=== PATIENT | male | born 1965 ===

== ENCOUNTER 2023-12-24 10:30 | Emergency (ER) | payer OTHER, SELFPAY ==
--- NOTE | ~2023-12-24 | US_ITS ---
EXAMINATION: US ABDOMEN LIMITED CLINICAL INFORMATION: Upper abdominal pain. COMPARISON: Abdominal ultrasound 04/14/2019 and 09/02/2018 TECHNIQUE: Real-time imaging of the right upper quadrant abdominal viscera. FINDINGS: PANCREAS: The visualized portions of the pancreas are unremarkable but a large portion of the gland is obscured by bowel gas. LIVER: The liver is normal in size measuring 16.3 cm in greatest length. The liver contour is normal. Parenchymal echogenicity is normal. Previously seen increased echogenicity is not appreciated on the current study. No focal hepatic lesion. There is no intrahepatic biliary duct dilatation seen. GALLBLADDER: Normal. The gallbladder is physiologically distended without evidence of stones, sludge, polyps, wall thickening or pericholecystic fluid. COMMON BILE DUCT: Normal in caliber measuring 0.3 cm in diameter. RIGHT KIDNEY: Normal. No hydronephrosis. No renal calculi or focal parenchymal lesions. The kidney measures 10.0 cm in maximum dimension. FREE FLUID: None. US/US abdomen limited IMPRESSION: Negative exam. A cause for the patient's upper abdominal pain has not been found. Electronically signed by: Luis Wadsworth MD 12/24/2023 01:58 PM EDT
--- NOTE | 2023-12-24 10:38 | ECG_ITS ---
Test Reason : chestpain Blood Pressure : / mmHG Vent. Rate : 087 BPM Atrial Rate : 087 BPM P-R Int : 154 ms QRS Dur : 082 ms QT Int : 372 ms P-R-T Axes : 023 -03 021 degrees QTc Int : 447 ms Normal sinus rhythm Normal ECG When compared with ECG of 22-JUN-2016 13:37, Vent. rate has increased BY 38 BPM QT has shortened Nonspecific T wave abnormality is no longer Present Referred By: Generic ED Physician Electronically Signed By:OLGA CHURCHILL
[2023-12-24 11:57] VITALS: BP 156/107; PULSE 94; RESP 18; TEMP 37; O2SAT 97; BMI 24.7
--- NOTE | 2023-12-24 12:11 | ED_ITS ---
HPI - Chest Pain General Chief Complaint: Chest Pain Stated Complaint: Chest pain, high BP Time Seen by Provider: 12/24/23 20:19 Source: patient and other (Girlfriend) Mode of arrival: ambulatory Limitations: no limitations History of Present Illness ED Provider: Dr. Layotn Gaxiola HPI narrative: 58-year-old male with a history of hypertension came alcohol use disorder who presents emergency department for evaluation of chest pain, abdominal pain, nausea, vomiting and diarrhea. The patient states his symptoms started yesterday. He states he has been having diffuse abdominal pain worse in the lower abdomen and right upper quadrant. He describes it as a cramping sensation which is 8/10 at its worst. These symptoms started yesterday. He states he has had multiple episodes of vomiting and has not been able to eat or drink for the last 2 days. He also is complaining of chest pain. He points to his anterior chest. He states this pain is worse with vomiting. The pain lasts approximately 30 minutes and had a proximally 10 episodes since onset. Patient states that he also had loose diarrheal stools. He denied dark black stools or bloody stools. He also states he has had no appetite. He is complaining of cramping and numbness in his hands and feet. The patient states that he does drink 4-6 rachel drinks per day. He states he did have a 30 day period of sobriety several months ago after he went to a 10 day treatment program but otherwise has been drinking heavily for a long time. Related Data Previous Rx's ?Medication ?Instructions ?Recorded diphenhydramine HCl 25 mg capsule 50 mg (2 x 25 mg) PO Q6H PRN 12/25/23 headache, nausea, vomiting #20 caps folic acid 20 mg capsule 20 mg PO DAILY 90 days #90 caps 12/25/23 metoclopramide HCl 10 mg tablet 10 mg PO Q6H PRN nausea and 12/25/23 (Reglan) vomiting #14 tabs multivitamin 1 tab PO DAILY 90 days #90 tabs 12/25/23 omeprazole 20 mg capsule,delayed 20 mg PO DAILY 30 days #30 caps 12/25/23 release thiamine HCl (vitamin B1) 100 mg 100 mg PO DAILY 90 days #90 tabs 12/25/23 tablet Allergies Allergy/AdvReac Type Severity Reaction Status Date / Time ondansetron Allergy Severe Angioedema Verified 12/24/23 12:08 Review of Systems 2 Review of Systems: Yes all other systems are reviewed and are negative [facility] Social History Social History (Updated 04/21/21 @ 10:10 by Rosemary Torres) Alcohol intake: current Alcohol intake frequency: 3 or more drinks per day Alcohol type: hard liquor Patient Tobacco Use Status: Former Tobacco user Smoked in Last 30 Days: No Use of substances other than those prescribed or required for medical reasons: No Advance Directives: No Advance Directives Information Provided: No Physical Exam 2 Vital Signs: Vital Signs: Last Vital Signs Temp 98.3 F 12/25/23 00:31 Pulse 81 12/25/23 00:31 Resp 16 12/25/23 00:31 BP 137/80 12/25/23 00:31 Pulse Ox 97 12/25/23 00:31 O2 Del Method Room Air 12/25/23 00:31 BMI result Body Mass Index 24.7 Vital signs revealed an elevated blood pressure of 149/104 otherwise Exam: General: Awake, alert in no distress Head: Normocephalic, atraumatic EENT: PERRL, Lids normal, sclera normal, conjunctiva normal, nose normal , ears normal, throat without erythema or exudates Neck: Supple, no adenopathy Lung: breath sounds symmetric, no wheezing, rales or rhonchi Chest: symmetric movement, nontender Heart: regular rate and rhythm, normal S1, S2 no murmurs or rubs Abdomen: Diffuse mild to moderate abdominal tenderness with increased tenderness in the right upper quadrant and epigastric area, no rebound, no voluntary or involuntary guarding Back: no vertebral tenderness, no CVAT Extremities: no deformities, moves all extremities symmetrically Neuro: Awake, alert, oriented, normal speech, cranial nerves intact, moves all extremities symmetrically Psych: Pleasant, cooperative Course Course Course Narrative: Rapid medical exam performed by Rosa M Mercado PA-C. The patient is a 58-year-old male presenting with upper abdominal pain x1 day. Associated nausea vomiting. He admits to daily alcohol use. On exam his abdomen is soft, without peritoneal signs, mild to moderate tenderness across the entire upper abdomen with moderate voluntary guarding. An ultrasound of the upper abdomen and labs obtained, he will return to the weight room pending full assessment Medications Administered Discontinued Medications Generic Name Dose Route Start Last Admin Trade Name Freq PRN Reason Stop Dose Admin Diphenhydramine HCl 50 mg 12/24/23 21:34 12/24/23 21:42 Diphenhydramine Hcl 50 Mg/Ml Vial IVPUSH 12/24/23 21:35 50 mg ONCE STA Administration Sodium Chloride 1,000 mls @ 999 mls/hr 12/24/23 21:32 12/24/23 22:39 Ns IV 12/24/23 22:32 Infused .Q1H1M STA Infusion Thiamine HCl 500 mg/ Sodium 105 mls @ 210 mls/hr 12/24/23 21:32 12/24/23 22:17 Chloride IV 12/24/23 22:01 Infused ONCE ONE Infusion Sodium Chloride 1,000 mls @ 999 mls/hr 12/24/23 21:36 12/24/23 23:33 Ns IV 12/24/23 22:36 Infused .Q1H1M STA Infusion Ketorolac Tromethamine 15 mg 12/24/23 21:32 12/24/23 21:42 Ketorolac Tromethamine 15 Mg/Ml Vial IVPUSH 12/24/23 21:33 15 mg ONCE STA Administration Metoclopramide HCl 10 mg 12/24/23 21:34 12/24/23 21:42 Metoclopramide Hcl 10 Mg/2 Ml Vial IVPUSH 12/24/23 21:35 10 mg ONCE STA Administration Sucralfate 1 gm 12/24/23 18:00 12/24/23 18:12 Sucralfate Oral Suspension 1 Gm/10 Ml Oral.Susp PO 12/24/23 18:01 1 gm ONCE ONE Administration Medical Decision Making Medical Decision Making [facility] Narrative: 58-year-old male with a history of hypertension came alcohol use disorder who presents emergency department for evaluation of chest pain, abdominal pain, nausea, vomiting and diarrhea x2 days with inability to eat or drink. He was also complaining of cramping and numbness in his hands and feet times months. Patient states he has had a poor appetite and has had weight loss. The patient drinks at least 4-6 large rachel drinks per day. He states he did have a period of sobriety for 30 days after attending a treatment program for 10 days. Differential diagnosis: ?Includes but is not limited to pancreatitis, cholecystitis, alcoholic gastritis, cirrhosis, electrolyte abnormalities, anemia Course: 21:48 My interpretation patient's laboratory evaluation is as follows: CBC was normal. Sodium elevated 146, chloride low 109. BUN and creatinine were normal. Glucose elevated 116. LFTs were normal. Troponin was detectable but not elevated at 2.9. Lipase was normal at 35. Ethanol level was elevated 291. Patient had a right upper quadrant ultrasound which revealed no acute findings to explain the patient's pain Patient's presentation is consistent with acute alcoholic gastritis. The patient's paresthesias most likely secondary to thiamine/folate deficiency and malnutrition. Patient was ordered to get normal saline IV x2 L, Toradol 15 mg IV, Reglan 10 mg IV, Benadryl 50 mg IV and thiamine 500 mg IV. 00:13 Patient is feeling significantly better after the above treatment. The patient will be discharged home with a prescription for Reglan Benadryl for nausea and vomiting, omeprazole for gastritis, thiamine folate and multivitamins for his alcohol use disorder. Patient was advised to get help with his alcohol use disorder and to attend AA meetings he was given printed and verbal instructions discharged home. He was also given a work note. Admission/Observation Consideration of admission/observation: Escalation of care including admission/observation considered (Yes) Lab Data [facility] Lab Attestation statement: I reviewed the patient's lab results. 12/24/23 12:56 12/24/23 12:56 Labs: Lab Results 12/24/23 12/24/23 Range/Units 12:56 17:15 WBC 5.1 (4.8-10.8) X10*3/uL RBC 4.57 L (4.60-5.80) X10*6/uL Hgb 14.7 (14.0-18.0) g/dl Hct 43.1 (42.0-52.0) % MCV 94.3 (80.0-98.0) fL MCH 32.2 (27.0-33.0) pg MCHC 34.1 (31.0-36.0) g/dl RDW 14.1 (11.0-16.0) % Plt Count 361 (160-400) X10*3/uL MPV 9.6 (9.4-12.4) fL Immature Gran % (Auto) 0.2 (0.0-0.4) % Neut % (Auto) 48.1 (45-73) % Lymph % (Auto) 45.6 H (20-40) % [place] % (Auto) 4.7 (2-11) % Eos % (Auto) 0.6 (0-4) % Baso % (Auto) 0.8 (0-2) % Lymph # (Auto) 2.3 (1.2-4.9) X10*3/uL [place] # (Auto) 0.2 (0.1-1.2) X10*3/uL Eos # (Auto) 0.0 (0.0-0.4) X10*3/uL Baso # (Auto) 0.0 (0.0-0.2) X10*3/uL Abs Immat Gran (auto) 0.01 (0.00-0.03) X10*3/uL Absolute Neuts (auto) 2.5 (2.0-8.3) x10*3/uL Absolute Nucleated RBC 0.000 (0.0-0.012) X10*3/uL Nucleated RBC % (auto) 0.0 (0.0-0.2) /100WBC Sodium 146 H (135-145) mmol/L Potassium 3.8 (3.3-5.1) mmol/L Chloride 109 H (96-108) mmol/L Carbon Dioxide 27 (22-29) mmol/L Anion Gap 14 (12-20) BUN 14 (9-16) mg/dL Creatinine 0.82 (0.5-1.4) mg/dL Estim Creat Clear Calc 110.4 Estimated GFR > 60 Random Glucose 116 H (60-115) mg/dL Calcium 8.5 (8.4-10.2) mg/dL Magnesium 2.2 (1.6-2.6) mg/dL Total Bilirubin 0.2 (0.0-1.0) mg/dL AST 24 (5-37) U/L ALT 21 (0-40) U/L Alkaline Phosphatase 90 (39-117) U/L Troponin I High Sens 3.3 2.9 (<3.5-35.0) ng/L Total Protein 7.7 (6.5-8.0) g/dL Albumin 4.0 (3.5-5.0) g/dL Lipase 35 (8-78) U/L Ethyl Alcohol 291 mg/dL Independent Interpretation I performed an independent interpretation of an: EKG Interpretation: My independent interpretation patient's 12 EKG done at 10:33 hours is as follows: Normal sinus rhythm rate of 87, normal ME interval, QRS duration QTC interval, no ST segment elevation, no ST segment depression, no significant T- wave abnormalities Radiology Impression Discussion of test interpretation with radiology: I have reviewed the radiologist's reading. Radiologist Impression: US abdomen limited IMPRESSION: Negative exam. A cause for the patient's upper abdominal pain has not been found. Dictated By: Luis Wadsworth MD Independent Historian Clinical information obtained from an independent historian. History obtained from or confirmed by: Other (Girlfriend) Prescription Management I considered prescription management with: Other (Antiemetics-Reglan and Benadryl, proton pump inhibitor-Prilosec) Chronic Conditions Patient?s care impacted by: Hypertension and Other (Alcohol use disorder) Discharge Plan Discharge Clinical Impression: Acute alcoholic gastritis, Nausea & vomiting, Alcohol use disorder Patient Disposition: Home, Self-Care Instructions: Gastritis (ED) Additional Instructions: Your laboratory evaluation was unremarkable. Your your nausea, vomiting abdominal pain is caused by alcoholic gastritis (inflammation of your stomach). Your numbness and weakness in your extremities is most likely caused by your alcohol use causing malnutrition and vitamin deficiencies (thiamine and folate). Take Prilosec (omeprazole) 20 mg pills, 1 pill once a day for 1 month. ?This medication shuts off your acid production and lets the inflammation in your stomach and esophagus heal. Take Reglan (metoclopramide) in 10 mg, 1 pill every 6 hours as needed for nausea and vomiting. When you take Reglan I also want you to take Benadry (diphenhydramine) l 25 mg, 2 pills. After you take these medications, lie down in a dark quiet room and try to fall asleep. ?These medications will make you sleepy, do not drive or work after taking these medications. Take thiamine, folate and multivitamins. Follow-up with your doctor in 2 days. Please return to the emergency department if your symptoms get worse or if you develop any symptoms that are concerning to you. Please see the work note You should consider getting into a detox program to help with your alcohol use disorder and consider attending AA meetings. Prescriptions: New diphenhydramine HCl 25 mg capsule 50 mg PO Q6H PRN (Reason: headache, nausea, vomiting) Qty: 20 0RF omeprazole 20 mg capsule,delayed release(DR/EC) 20 mg PO DAILY 30 Days Qty: 30 0RF metoclopramide HCl [Reglan] 10 mg tablet 10 mg PO Q6H PRN (Reason: nausea and vomiting) Qty: 14 0RF thiamine HCl (vitamin B1) 100 mg tablet 100 mg PO DAILY 90 Days Qty: 90 0RF folic acid 20 mg capsule 20 mg PO DAILY 90 Days Qty: 90 0RF multivitamin Tablet 1 tab PO DAILY 90 Days Qty: 90 0RF Stand Alone Forms: Work/School Release Interventions: ED Discharge Assessment Last Done: 12/25/23 00:31 Discharge Date/Time: 12/25/23 00:32 Print Language: Indonesian
[2023-12-24 13:05] LABS: MANUAL DIFF FLAG NO
[2023-12-24 13:07] LABS: Basophils Percent Auto 0.8 % (0-2); Eosinophils Percent Auto 0.6 % (0-4); Hematocrit 43.1 % (42.0-52.0); Hemoglobin 14.7 g/dl (14.0-18.0); Imm Gran Abs Auto 0.01 X10*3/uL (0.00-0.03); Imm Gran Pct Auto 0.2 % (0.0-0.4); Lymphocytes Absolute Auto 2.3 X10*3/uL (1.2-4.9); Lymphocytes Percent Auto 45.6 % (20-40); Mean Corpuscular HGB Conc 34.1 g/dl (31.0-36.0); Mean Corpuscular Hemoglobin 32.2 pg (27.0-33.0); Mean Corpuscular Volume 94.3 fL (80.0-98.0); Mean Platelet Volume 9.6 fL (9.4-12.4); Monocytes Absolute Auto 0.2 X10*3/uL (0.1-1.2); Monocytes Percent Auto 4.7 % (2-11); Neutrophils Absolute Auto 2.5 x10*3/uL (2.0-8.3); Neutrophils Percent Auto 48.1 % (45-73); Platelet Count 361 X10*3/uL (160-400); Red Blood Count 4.57 X10*6/uL (4.60-5.80); Red Cell Distribution Width 14.1 % (11.0-16.0); White Blood Count 5.1 X10*3/uL (4.8-10.8)
[2023-12-24 13:26] LABS: Alanine Aminotransferase 21 U/L (0-40); Alkaline Phosphatase 90 U/L (39-117); Anion Gap 14 (12-20); Aspartate Amino Transferase 24 U/L (5-37); Bilirubin Total 0.2 mg/dL (0.0-1.0); Blood Urea Nitrogen 14 mg/dL (9-16); Calcium 8.5 mg/dL (8.4-10.2); Carbon Dioxide 27 mmol/L (22-29); Chloride 109 mmol/L (96-108); Creatinine Clr Calc Pharmacy 110.4; Estimated Glomerular Filt Rate > 60; Ethanol 291 mg/dL; Glucose Random 116 mg/dL (60-115); Lipase 35 U/L (8-78); Magnesium 2.2 mg/dL (1.6-2.6); Potassium 3.8 mmol/L (3.3-5.1); Sodium 146 mmol/L (135-145); Total Protein 7.7 g/dL (6.5-8.0)
[2023-12-24 13:36] LABS: Troponin-I High Sensitivity 3.3 ng/L (<3.5-35.0)
[2023-12-24 17:43] LABS: Troponin-I High Sensitivity 2.9 ng/L (<3.5-35.0)
[2023-12-24] MEDS: Sucralfate Oral Suspension 1 GM/10 ML ORAL.SUSP PO (18:12)
[2023-12-24 19:28] VITALS: BP 174/118; PULSE 100; RESP 16; TEMP 36.6; O2SAT 96
[2023-12-24 20:00] VITALS: BP 149/104; PULSE 95; RESP 12; TEMP 36.9; O2SAT 98
[2023-12-24] MEDS: Metoclopramide HCl 10 MG/2 ML VIAL IVPUSH (21:42)
[2023-12-24] MEDS: Ketorolac Tromethamine 15 MG/ML VIAL IVPUSH (21:42)
[2023-12-24] MEDS: diphenhydrAMINE HCL 50 MG/ML VIAL IVPUSH (21:42)
[2023-12-24] MEDS: 0.9 % Sodium Chloride 1,000 ML 999 ML IV ×2 (21:42→22:38)
[2023-12-24] MEDS: Thiamine HCL 500 MG in 0.9 % Sodium Chloride 100 ML 210 MG IV (21:42)
[2023-12-24 22:12] VITALS: BP 150/103; PULSE 83; RESP 16; O2SAT 97
--- NOTE | 2023-12-24 22:39 | PC.NURSE ---
pt reports relief of symptoms and pain s/p medication administration. iv fluids running, pt resting comfortably. call frye within reach
[2023-12-25 00:31] VITALS: BP 137/80; PULSE 81; RESP 16; TEMP 36.8; O2SAT 97
== END 2023-12-25 00:32 | disposition home or self-care (01) ==
PROVIDERS: Physician Assistant Medical; Emergency Provider Emergency Medicine Emergency Medical Services
DX: K29.20 Alcoholic gastritis without bleeding (principal); R07.89 Other chest pain; F10.10 Alcohol abuse, uncomplicated; Y90.8 Blood alcohol level of 240 mg/100 ml or more; R11.2 Nausea with vomiting, unspecified; Z79.899 Other long term (current) drug therapy; Z51.81 Encounter for therapeutic drug level monitoring
CPT/HCPCS: 36415; 76705; 80053; 80307; 83690; 83735; 84484; 85025; 93005; 96361; 96374; 96375; 99285; J1200; J1885; J2765; J3411

== ENCOUNTER 2024-02-12 08:06 | Outpatient (REF) | payer MEDICAID, SELFPAY ==
[2024-02-12 10:56] LABS: MANUAL DIFF FLAG NO
[2024-02-12 11:04] LABS: Basophils Percent Auto 0.6 % (0-2); Eosinophils Absolute Auto 0.2 X10*3/uL (0.0-0.4); Hematocrit 39.5 % (42.0-52.0); Hemoglobin 12.8 g/dl (14.0-18.0); Imm Gran Abs Auto 0.02 X10*3/uL (0.00-0.03); Imm Gran Pct Auto 0.3 % (0.0-0.4); Lymphocytes Absolute Auto 2.4 X10*3/uL (1.2-4.9); Lymphocytes Percent Auto 35.6 % (20-40); Mean Corpuscular HGB Conc 32.4 g/dl (31.0-36.0); Mean Corpuscular Volume 95.6 fL (80.0-98.0); Monocytes Absolute Auto 0.7 X10*3/uL (0.1-1.2); Neutrophils Absolute Auto 3.4 x10*3/uL (2.0-8.3); Neutrophils Percent Auto 50.5 % (45-73); Platelet Count 222 X10*3/uL (160-400); Red Blood Count 4.13 X10*6/uL (4.60-5.80); Red Cell Distribution Width 14.2 % (11.0-16.0); White Blood Count 6.7 X10*3/uL (4.8-10.8)
[2024-02-12 11:06] LABS: INTERNATIONAL NORM RATIO 0.9 (0.9-1.1); Prothrombin Time 10.6 SEC (10.9-12.4)
[2024-02-12 11:14] LABS: Estimated Average Glucose 114 mg/dL; Hemoglobin A1C 129.2986 umol/L; Hemoglobin A1c % 5.6 % (<6.0); Total Hemoglobin (HGBA1C) 3436.6377 umol/L
[2024-02-12 11:38] LABS: HBS Num1 0.43 mIU/mL (0-7.99); HBc Num1 0.14 S/CO (0.00-0.79); HBsAGNum1 0.27 S/CO (0.00-0.99); HIV AB/AG Nonreactive (Nonreactive); HIV Num 1 0.06 S/CO (0.00-0.99); Hepatitis B Core Antibody Nonreactive (Nonreactive); Hepatitis B Surface Antigen Negative (Negative); ~HepC Num1 12.15 S/CO (0.00-0.79); ~Hepatitis B Surface Antibody NONREACTIVE (Nonreactive); ~Hepatitis C Antibody Reactive (Nonreactive)
[2024-02-12 11:49] LABS: Vitamin B12 160 pg/mL (200-900)
[2024-02-12 11:50] LABS: Alanine Aminotransferase 29 U/L (0-40); Anion Gap 12 (12-20); Aspartate Amino Transferase 23 U/L (5-37); Bilirubin Total 0.4 mg/dL (0.0-1.0); Blood Urea Nitrogen 10 mg/dL (9-16); Calcium 9.7 mg/dL (8.4-10.2); Carbon Dioxide 28 mmol/L (22-29); Chloride 104 mmol/L (96-108); Estimated Glomerular Filt Rate > 60; Glucose Random 98 mg/dL (60-115); Magnesium 1.5 mg/dL (1.6-2.6); Potassium 3.9 mmol/L (3.3-5.1); Sodium 140 mmol/L (135-145); TSH reflex Free T4 1.88 uIU/mL (0.32-4.0); Total Protein 7.3 g/dL (6.5-8.0)
[2024-02-12 12:06] LABS: Alkaline Phosphatase 71 U/L (39-117)
[2024-02-13 14:43] LABS: HCV Log PCR <1.18 NOT DETECTED Log IU/mL (NOT DETECTED); HepC Viral Load <15 NOT DETECTED IU/mL (NOT DETECTED)
[2024-02-14 07:28] LABS: RPR Rapid Plasma Reagin NON-REACTIVE (NON-REACTIVE)
== END 2024-02-12 08:07 | disposition home or self-care (01) ==
LOC: HO.HHCL 08:06
PROVIDERS: Visit Provider Emergency Medicine
DX: Z11.4 Encounter for screening for human immunodeficiency virus [HIV] (principal); Z13.1 Encounter for screening for diabetes mellitus; F10.90 Alcohol use, unspecified, uncomplicated; K21.9 Gastro-esophageal reflux disease without esophagitis; I10 Essential (primary) hypertension
CPT/HCPCS: 36415; 80053; 82607; 83036; 83735; 84443; 85025; 85610; 86592; 86704; 86706; 86803; 87338; 87340; 87389; 87522

== ENCOUNTER 2024-02-17 17:28 | Emergency (ER) | payer MEDICAID, SELFPAY ==
[2024-02-17 17:49] VITALS: BP 136/95; PULSE 93; RESP 16; TEMP 37.6; O2SAT 97; BMI 25.8
== END 2024-02-18 00:22 | disposition left against medical advice (07) ==
PROVIDERS: Emergency Provider Emergency Medicine Emergency Medical Services
DX: R51.9 Headache, unspecified (principal); Z53.21 Procedure and treatment not carried out due to patient leaving prior to being seen by health care provider
CPT/HCPCS: 99281

== ENCOUNTER 2024-10-07 17:54 | Emergency (ER) | payer MEDICAID, SELFPAY ==
--- NOTE | ~2024-10-07 | CT_ITS ---
CLINICAL HISTORY: left flank pain CT of the abdomen and pelvis without intravenous contrast. No comparison. Findings: The liver and gallbladder are unremarkable. No renal stones are seen. There is a 6 mm distal left ureteral stone with mild hydronephrosis. The spleen and pancreas are unremarkable. No abdominal aortic aneurysm. Small hiatal hernia. No diverticulitis is identified. Normal appendix. No bowel obstruction. There is a small umbilical hernia. The bladder is decompressed. There are multilevel degenerative changes in the spine. Sclerotic density right femoral neck is likely a bone island. Impression: 6 mm distal left ureteral stone. Other findings as above. This document has been electronically signed by: Vinny Armenta MD on 10/07/2024 21:06:23
[2024-10-07 18:03] VITALS: BP 131/99; PULSE 115; RESP 18; TEMP 36.5; O2SAT 97; BMI 27.4
--- NOTE | 2024-10-07 18:06 | ED.ABDPAIN ---
HPI - Abdominal Pain General Chief Complaint: Abdominal Pain Stated Complaint: Abd pain, low back pain Time Seen by Provider: 10/07/24 18:41 Related Data Previous Rx's ?Medication ?Instructions ?Recorded diphenhydramine HCl 25 mg capsule 50 mg (2 x 25 mg) PO Q6H PRN 12/25/23 headache, nausea, vomiting #20 caps folic acid 20 mg capsule 20 mg PO DAILY 90 days #90 caps 12/25/23 metoclopramide HCl 10 mg tablet 10 mg PO Q6H PRN nausea and 12/25/23 (Reglan) vomiting #14 tabs multivitamin 1 tab PO DAILY 90 days #90 tabs 12/25/23 omeprazole 20 mg capsule,delayed 20 mg PO DAILY 30 days #30 caps 12/25/23 release thiamine HCl (vitamin B1) 100 mg 100 mg PO DAILY 90 days #90 tabs 12/25/23 tablet ibuprofen 400 mg tablet 400 mg PO Q6H PRN pain #20 tabs 10/07/24 oxycodone 5 mg tablet 5 mg PO Q8H PRN pain #7 tabs 10/07/24 tamsulosin 0.4 mg capsule (Flomax) 0.4 mg PO DAILY #7 caps 10/07/24 Allergies Allergy/AdvReac Type Severity Reaction Status Date / Time ondansetron Allergy Severe Angioedema Verified 10/07/24 18:07 [facility] Social History Social History Alcohol intake: current Alcohol intake frequency: holidays/special occasions only Alcohol type: hard liquor Patient Tobacco Use Status: Former Tobacco user Physical Exam ED Vital Signs: Vital Signs - 24 hr 10/07/24 18:03 Temperature 97.7 F Pulse Rate 115 H Respiratory Rate 18 Blood Pressure 131/99 H Pulse Oximetry 97 BMI result Body Mass Index 27.4 Course Course Course Narrative: This is an RME: Additional HPI, ROS, PE not included below will be deferred to primary provider. RME assessment and note performed by: Chrystal Lerma PA-C This is a [id number]-male, with a hx of HTN, who presents to the ER with complaints of LLQ pain x 2 hours. Had diarrhea several days ago. Pt diaphoretic HR 115bpm, no CP/SOB. Pain radiates into left flank. No urinary symptoms. Plan: Labs, EKG, UA, further ER eval needed Reevaluation(s) Reevaluation #1: duplicate chart, see Dr. Nunez's note Medical Decision Making Lab Data 10/07/24 18:32 10/07/24 18:32 Labs: Lab Results 10/07/24 10/07/24 Range/Units 18:32 19:36 WBC 7.7 (4.8-10.8) X10*3/uL RBC 4.66 (4.60-5.80) X10*6/uL Hgb 14.4 (14.0-18.0) g/dl Hct 42.0 (42.0-52.0) % MCV 90.1 (80.0-98.0) fL MCH 30.9 (27.0-33.0) pg MCHC 34.3 (31.0-36.0) g/dl RDW 14.0 (11.0-16.0) % Plt Count 347 D (160-400) X10*3/uL MPV 10.0 (9.4-12.4) fL Immature Gran % (Auto) 0.4 (0.0-0.4) % Neut % (Auto) 55.0 (45-73) % Lymph % (Auto) 35.9 (20-40) % [place] % (Auto) 7.2 (2-11) % Eos % (Auto) 1.0 (0-4) % Baso % (Auto) 0.5 (0-2) % Lymph # (Auto) 2.8 (1.2-4.9) X10*3/uL [place] # (Auto) 0.6 (0.1-1.2) X10*3/uL Eos # (Auto) 0.1 (0.0-0.4) X10*3/uL Baso # (Auto) 0.0 (0.0-0.2) X10*3/uL Abs Immat Gran (auto) 0.03 (0.00-0.03) X10*3/uL Absolute Neuts (auto) 4.3 (2.0-8.3) x10*3/uL Absolute Nucleated RBC 0.000 (0.0-0.012) X10*3/uL Nucleated RBC % (auto) 0.0 (0.0-0.2) /100WBC Sodium 139 (135-145) mmol/L Potassium 3.3 (3.3-5.1) mmol/L Chloride 105 (96-108) mmol/L Carbon Dioxide 19 L (22-29) mmol/L Anion Gap 18 (12-20) BUN 9 (9-16) mg/dL Creatinine 0.92 (0.5-1.4) mg/dL Estim Creat Clear Calc 97.2 Estimated GFR > 60 Random Glucose 147 H (60-115) mg/dL Calcium 8.8 D (8.4-10.2) mg/dL Magnesium 2.0 (1.6-2.6) mg/dL Total Bilirubin 0.4 (0.0-1.0) mg/dL Direct Bilirubin 0.1 (0.0-0.5) mg/dL AST 32 (5-37) U/L ALT 18 (0-40) U/L Alkaline Phosphatase 94 (39-117) U/L Total Protein 7.4 (6.5-8.0) g/dL Albumin 4.0 (3.5-5.0) g/dL Lipase 20 (8-78) U/L Urine Color Yellow Urine Appearance Clear Urine pH 6.0 (5.0-9.0) Ur Specific [place] 1.020 (1.005-1.025) Urine Protein Trace (Neg-Trace) mg/dL Urine Glucose (UA) Negative (Negative) mg/dL Urine Ketones Trace (Negative) mg/dL Urine Blood Large (3+) H (Negative) Urine Nitrite Negative (Negative) Ur Leukocyte Esterase Negative (Negative) Urine RBC >20 H (0-2) /HPF Urine WBC 0-5 (0-5) /HPF Ur Squamous Epith Cells 0-2 (0-2) /HPF Urine Bacteria None Seen (None Seen) Hyaline Casts 0-2 (0-2) /LPF Medications Administered Discontinued Medications Generic Name Dose Route Start Last Admin Trade Name Freq PRN Reason Stop Dose Admin Hydromorphone HCl 0.5 mg 10/07/24 21:43 10/07/24 22:12 Hydromorphone Hcl 0.5 Mg/0.5 Ml Syringe IVPUSH 10/07/24 21:44 0.5 mg ONCE ONE Administration Protocol Sodium Chloride 1,000 mls @ 999 mls/hr 10/07/24 20:30 10/07/24 23:01 Ns IV 10/07/24 21:30 Infused .Q1H1M TONG Infusion Ketorolac Tromethamine 15 mg 10/07/24 20:17 10/07/24 20:23 Ketorolac Tromethamine 15 Mg/Ml Vial IVPUSH 10/07/24 20:18 15 mg ONCE ONE Administration Discharge Plan Discharge Clinical Impression: Renal colic Patient Disposition: Home, Self-Care Instructions: Renal Colic (ED) Prescriptions: New tamsulosin [Flomax] 0.4 mg capsule 0.4 mg PO DAILY Qty: 7 0RF ibuprofen 400 mg tablet 400 mg PO Q6H PRN (Reason: pain) Qty: 20 0RF oxycodone 5 mg tablet 5 mg PO Q8H PRN (Reason: pain) Qty: 7 0RF Rx Instructions: Partial Fill upon patient request. No Action diphenhydramine HCl 25 mg capsule 50 mg PO Q6H PRN (Reason: headache, nausea, vomiting) Qty: 20 0RF omeprazole 20 mg capsule,delayed release(DR/EC) 20 mg PO DAILY 30 Days Qty: 30 0RF metoclopramide HCl [Reglan] 10 mg tablet 10 mg PO Q6H PRN (Reason: nausea and vomiting) Qty: 14 0RF thiamine HCl (vitamin B1) 100 mg tablet 100 mg PO DAILY 90 Days Qty: 90 0RF folic acid 20 mg capsule 20 mg PO DAILY 90 Days Qty: 90 0RF multivitamin Tablet 1 tab PO DAILY 90 Days Qty: 90 0RF Referrals: Delfin Snyder MD [Physician, Urology] - 10/09/24 Interventions: ED Discharge Assessment Last Done: 10/07/24 23:47 Discharge Date/Time: 10/07/24 23:47 Print Language: Dutch
--- NOTE | 2024-10-07 18:09 | ECG_ITS ---
Test Reason : abd pain Blood Pressure : */* mmHG Vent. Rate : 89 BPM Atrial Rate : 89 BPM P-R Int : 152 ms QRS Dur : 90 ms QT Int : 390 ms P-R-T Axes : 22 -1 15 degrees QTcB Int : 474 ms Sinus rhythm with occasional Premature ventricular complexes Otherwise normal ECG When compared with ECG of 24-Dec-2023 10:33, Premature ventricular complexes are now Present Referred By: Chrystal Lerma Electronically Signed By: Javi Ruiz
[2024-10-07 18:29] VITALS: BP 130/97; PULSE 92; RESP 18; TEMP 36.4; O2SAT 99
[2024-10-07 18:39] LABS: MANUAL DIFF FLAG NO
[2024-10-07 18:42] LABS: Hematocrit 42.0 % (42.0-52.0); Hemoglobin 14.4 g/dl (14.0-18.0); Imm Gran Abs Auto 0.03 X10*3/uL (0.00-0.03); Imm Gran Pct Auto 0.4 % (0.0-0.4); Lymphocytes Absolute Auto 2.8 X10*3/uL (1.2-4.9); Mean Corpuscular HGB Conc 34.3 g/dl (31.0-36.0); Mean Corpuscular Hemoglobin 30.9 pg (27.0-33.0); Mean Corpuscular Volume 90.1 fL (80.0-98.0); NRBC Abs Auto 0.000 X10*3/uL (0.0-0.012); NRBC Pct Auto 0.0 /100WBC (0.0-0.2); Platelet Count 347 X10*3/uL (160-400); Red Blood Count 4.66 X10*6/uL (4.60-5.80); White Blood Count 7.7 X10*3/uL (4.8-10.8)
[2024-10-07 18:59] LABS: Alanine Aminotransferase 18 U/L (0-40); Albumin Level 4.0 g/dL (3.5-5.0); Alkaline Phosphatase 94 U/L (39-117); Anion Gap 18 (12-20); Aspartate Amino Transferase 32 U/L (5-37); Blood Urea Nitrogen 9 mg/dL (9-16); Calcium 8.8 mg/dL (8.4-10.2); Carbon Dioxide 19 mmol/L (22-29); Chloride 105 mmol/L (96-108); Creatinine Clr Calc Pharmacy 97.2; Estimated Glomerular Filt Rate > 60; Lipase 20 U/L (8-78); Magnesium 2.0 mg/dL (1.6-2.6); Potassium 3.3 mmol/L (3.3-5.1); Sodium 139 mmol/L (135-145); Total Protein 7.4 g/dL (6.5-8.0)
[2024-10-07 19:45] LABS: Appearance Urine Clear; Glucose Urine UA Negative (Negative); PH 6.0 (5.0-9.0); Specific Gravity - Urine 1.020 (1.005-1.025); UMIC TRIGGER UACC YES
--- NOTE | 2024-10-07 19:47 | ED.ABDPAIN ---
HPI - Abdominal Pain General Chief Complaint: Abdominal Pain Stated Complaint: Abd pain, low back pain Time Seen by Provider: 10/07/24 18:41 History of Present Illness HPI narrative: Patient is a 59-year-old male presented today with having left-sided abdominal pain that is been ongoing for the last week. Getting worse over the last few hours. Patient denies any changes in bowel movement. Denies any changes in urination. Patient is from home. No history of diverticulitis no history of kidney stone in the past. No history of abdominal surgery in the past. Pain is not made worse with movement. MD elicited complaint: abdominal pain Related Data Previous Rx's ?Medication ?Instructions ?Recorded diphenhydramine HCl 25 mg capsule 50 mg (2 x 25 mg) PO Q6H PRN 12/25/23 headache, nausea, vomiting #20 caps folic acid 20 mg capsule 20 mg PO DAILY 90 days #90 caps 12/25/23 metoclopramide HCl 10 mg tablet 10 mg PO Q6H PRN nausea and 12/25/23 (Reglan) vomiting #14 tabs multivitamin 1 tab PO DAILY 90 days #90 tabs 12/25/23 omeprazole 20 mg capsule,delayed 20 mg PO DAILY 30 days #30 caps 12/25/23 release thiamine HCl (vitamin B1) 100 mg 100 mg PO DAILY 90 days #90 tabs 12/25/23 tablet ibuprofen 400 mg tablet 400 mg PO Q6H PRN pain #20 tabs 10/07/24 oxycodone 5 mg tablet 5 mg PO Q8H PRN pain #7 tabs 10/07/24 tamsulosin 0.4 mg capsule (Flomax) 0.4 mg PO DAILY #7 caps 10/07/24 Allergies Allergy/AdvReac Type Severity Reaction Status Date / Time ondansetron Allergy Severe Angioedema Verified 10/07/24 18:07 Review of Systems Review of Systems Positive abdominal pain minimal nausea. [facility] Past Medical History Attestation statement: The following information was validated with the patient. Social History Social History Alcohol intake: current Alcohol intake frequency: holidays/special occasions only Alcohol type: hard liquor Patient Tobacco Use Status: Former Tobacco user Smoked in Last 30 Days: No Use of substances other than those prescribed or required for medical reasons: No Advance Directives: No Advance Directives Information Provided: No Physical Exam ED Vital Signs: Vital Signs - 24 hr 10/07/24 18:03 10/07/24 18:29 Temperature 97.7 F 97.6 F Pulse Rate 115 H 92 Respiratory Rate 18 18 Blood Pressure 131/99 H 130/97 H Pulse Oximetry 97 99 Oxygen Delivery Method Room Air BMI result Body Mass Index 27.4 Appearance: Alert. Oriented X3. No acute distress. Eyes: Pupils equal, round and reactive to light. ENT: Pharynx normal. Neck: Normal inspection. Neck supple. No lymph nodes noted. No crepitus CVS: Normal heart rate and rhythm. Pulses normal. Normal S1 and S2 Respiratory: No respiratory distress. Breath sounds normal. No Wheezing. No rales Abdomen: Left lower quadrant tenderness no rebound or guarding Skin: Skin warm and dry. Normal skin color. Normal skin turgor. Extremities: No lower extremity edema. Neurovascular intact to all extremities. No Lacerations. No Rash Neuro: Oriented X 3. No motor deficit. No sensory deficit. Moving all extermities. No slurred speech Medical Decision Making Medical Decision Making [facility] Narrative: Patient presented with having left lower quadrant pain radiating to the back on and off for the last week. Patient's urine showed large amount of blood. Patient's kidney function was normal. Urine showed no evidence of infection positive blood CT scan of the abdomen pelvis by my interpretation showed no obstruction or abscess no perforation positive kidney stone on the left side. Radiology's report a distal left 6 mm stone. Patient given pain medication with good results. Symptomatically feels improved. Will discharge patient home. Currently in stable condition. Differential Diagnosis Differential Diagnoses: The differential diagnosis associated with the presentation includes Kidney stone versus diverticulitis versus obstruction Admission/Observation Consideration of admission/observation: Escalation of care including admission/observation considered Lab Data [facility] Lab Attestation statement: I reviewed the patient's lab results. 10/07/24 18:32 10/07/24 18:32 Labs: Lab Results 10/07/24 10/07/24 Range/Units 18:32 19:36 WBC 7.7 (4.8-10.8) X10*3/uL RBC 4.66 (4.60-5.80) X10*6/uL Hgb 14.4 (14.0-18.0) g/dl Hct 42.0 (42.0-52.0) % MCV 90.1 (80.0-98.0) fL MCH 30.9 (27.0-33.0) pg MCHC 34.3 (31.0-36.0) g/dl RDW 14.0 (11.0-16.0) % Plt Count 347 D (160-400) X10*3/uL MPV 10.0 (9.4-12.4) fL Immature Gran % (Auto) 0.4 (0.0-0.4) % Neut % (Auto) 55.0 (45-73) % Lymph % (Auto) 35.9 (20-40) % [place] % (Auto) 7.2 (2-11) % Eos % (Auto) 1.0 (0-4) % Baso % (Auto) 0.5 (0-2) % Lymph # (Auto) 2.8 (1.2-4.9) X10*3/uL [place] # (Auto) 0.6 (0.1-1.2) X10*3/uL Eos # (Auto) 0.1 (0.0-0.4) X10*3/uL Baso # (Auto) 0.0 (0.0-0.2) X10*3/uL Abs Immat Gran (auto) 0.03 (0.00-0.03) X10*3/uL Absolute Neuts (auto) 4.3 (2.0-8.3) x10*3/uL Absolute Nucleated RBC 0.000 (0.0-0.012) X10*3/uL Nucleated RBC % (auto) 0.0 (0.0-0.2) /100WBC Sodium 139 (135-145) mmol/L Potassium 3.3 (3.3-5.1) mmol/L Chloride 105 (96-108) mmol/L Carbon Dioxide 19 L (22-29) mmol/L Anion Gap 18 (12-20) BUN 9 (9-16) mg/dL Creatinine 0.92 (0.5-1.4) mg/dL Estim Creat Clear Calc 97.2 Estimated GFR > 60 Random Glucose 147 H (60-115) mg/dL Calcium 8.8 D (8.4-10.2) mg/dL Magnesium 2.0 (1.6-2.6) mg/dL Total Bilirubin 0.4 (0.0-1.0) mg/dL Direct Bilirubin 0.1 (0.0-0.5) mg/dL AST 32 (5-37) U/L ALT 18 (0-40) U/L Alkaline Phosphatase 94 (39-117) U/L Total Protein 7.4 (6.5-8.0) g/dL Albumin 4.0 (3.5-5.0) g/dL Lipase 20 (8-78) U/L Urine Color Yellow Urine Appearance Clear Urine pH 6.0 (5.0-9.0) Ur Specific [place] 1.020 (1.005-1.025) Urine Protein Trace (Neg-Trace) mg/dL Urine Glucose (UA) Negative (Negative) mg/dL Urine Ketones Trace (Negative) mg/dL Urine Blood Large (3+) H (Negative) Urine Nitrite Negative (Negative) Ur Leukocyte Esterase Negative (Negative) Urine RBC >20 H (0-2) /HPF Urine WBC 0-5 (0-5) /HPF Ur Squamous Epith Cells 0-2 (0-2) /HPF Urine Bacteria None Seen (None Seen) Hyaline Casts 0-2 (0-2) /LPF Independent Interpretation I performed an independent interpretation of an: CT Scan (No acute obstruction no acute abscess no perforation likely kidney stone noted) Radiology Impression Discussion of test interpretation with radiology: I have reviewed the radiologist's reading. Medications Administered Discontinued Medications Generic Name Dose Route Start Last Admin Trade Name Freq PRN Reason Stop Dose Admin Hydromorphone HCl 0.5 mg 10/07/24 21:43 10/07/24 22:12 Hydromorphone Hcl 0.5 Mg/0.5 Ml Syringe IVPUSH 10/07/24 21:44 0.5 mg ONCE ONE Administration Protocol Sodium Chloride 1,000 mls @ 999 mls/hr 10/07/24 20:30 10/07/24 23:01 Ns IV 10/07/24 21:30 Infused .Q1H1M TONG Infusion Ketorolac Tromethamine 15 mg 10/07/24 20:17 10/07/24 20:23 Ketorolac Tromethamine 15 Mg/Ml Vial IVPUSH 10/07/24 20:18 15 mg ONCE ONE Administration Discharge Plan Discharge Clinical Impression: Renal colic Patient Disposition: Home, Self-Care Instructions: Renal Colic (ED) Prescriptions: New tamsulosin [Flomax] 0.4 mg capsule 0.4 mg PO DAILY Qty: 7 0RF ibuprofen 400 mg tablet 400 mg PO Q6H PRN (Reason: pain) Qty: 20 0RF oxycodone 5 mg tablet 5 mg PO Q8H PRN (Reason: pain) Qty: 7 0RF Rx Instructions: Partial Fill upon patient request. No Action diphenhydramine HCl 25 mg capsule 50 mg PO Q6H PRN (Reason: headache, nausea, vomiting) Qty: 20 0RF omeprazole 20 mg capsule,delayed release(DR/EC) 20 mg PO DAILY 30 Days Qty: 30 0RF metoclopramide HCl [Reglan] 10 mg tablet 10 mg PO Q6H PRN (Reason: nausea and vomiting) Qty: 14 0RF thiamine HCl (vitamin B1) 100 mg tablet 100 mg PO DAILY 90 Days Qty: 90 0RF folic acid 20 mg capsule 20 mg PO DAILY 90 Days Qty: 90 0RF multivitamin Tablet 1 tab PO DAILY 90 Days Qty: 90 0RF Referrals: Delfin Snyder MD [Physician, Urology] - 10/09/24 Print Language: Spanish
[2024-10-07 23:46] VITALS: BP 140/96; PULSE 82; RESP 16; TEMP 36.8; O2SAT 97
[2024-10-07 23:47] VITALS: BP 140/96; PULSE 82; RESP 16; TEMP 36.8; O2SAT 97
== END 2024-10-07 23:47 | disposition home or self-care (01) ==
PROVIDERS: Physician Assistant Medical; Emergency Provider Emergency Medicine Emergency Medical Services
DX: N23 Unspecified renal colic (principal); M54.50 Low back pain, unspecified; R94.31 Abnormal electrocardiogram [ECG] [EKG]; R11.0 Nausea; Z87.891 Personal history of nicotine dependence
CPT/HCPCS: 36415; 74176; 80048; 80076; 81001; 83690; 83735; 85025; 93005; 96361; 96374; 96375; 99284; 99285; J1171; J1885

== ENCOUNTER → 2024-10-07 18:09 | Outpatient (BNV) | payer MEDICAID, SELFPAY | PROVIDERS: Emergency Provider Emergency Medicine Emergency Medical Services; Visit Provider Internal Medicine Cardiovascular Disease | DX: I49.3 Ventricular premature depolarization (principal) | CPT/HCPCS: 93010 ==

== ENCOUNTER → 2024-10-07 19:58 | Outpatient (BNV) | payer MEDICAID, SELFPAY | PROVIDERS: Emergency Provider Emergency Medicine Emergency Medical Services; Visit Provider Radiology Diagnostic Radiology | DX: N20.1 Calculus of ureter (principal) | CPT/HCPCS: 74176 ==

== ENCOUNTER 2024-10-09 09:35 | Outpatient (REF) | payer MEDICAID, SELFPAY ==
--- OUTSIDE RECORDS SUMMARY | 2024-10-09 09:53 | XMS_ITS | Encounter Summary ---
Author Organization [employer] Address [address] [place] [address] Care Team Providers Care Epic Application Coordinator Name Role Phone Norma Hernandez MD Primary Care Provider [phone] Encounter Details Date Type Department Care Team (Late st Contact Info) Description 02/12/2024 Orders Only [facility] [address] [place] [phone] Giuseppe Florence MD [address] [place] [phone] Hypomagnesemia (Primary Dx); Vitamin B 12 deficiency Social History Tobacco Use Types Packs/Day Years Used Date Smoking Tobacco: Former Cigarettes Smokeless Tobacco: Never Sex and Gender Information Value Date Recorded Sex Assigned at Male 01/29/2022 10:31 AM EDT Legal Sex Male 10:31 AM EDT Gender Identity Male 01/29/2022 10:31 AM EDT Sexual Orientation Straight 01/29/2022 10 :31 AM EDT documented as of this encounter Plan of Treatment Upcoming Encounters Date Type Department Care Team (Late st Contact Info) Description 11/03/2024 11:15 AM EDT Office Visit [facility] [address] [place] [address] Norma Hernandez MD [address] [place] [address] 11/25/2024 9:30 AM EDT Office Visit [facility] OPTOM[facility] [address] [place] [phone] Lei, Maribel, OD [address] [place] [address] documented as of this encounter Procedures Procedure Name Priority Date/Time Associated Diagnosis Comments HEPATITIS C VIRAL RNA, QUANTITATIVE, REAL-TIME PCR Routine 02/12/2024 8:08 AM EST documented in this encounter Results * Hepatitis C Viral RNA, Quantitative, Real-Time PCR (02/12/2024 8:08 AM EST) Hepatitis C Viral Load <15 NOT DETECTED NOT DETECTED IU/mL [facility] HCV Log PCR <1.18 NOT DETECTED NOT DETECTED Log IU/mL [facility] Comment:For additional infor mation, please refer tohttp://education.[employer]/faq/WLV02n9(This link is being provided for informational/educational purposes only.)THIS TEST WAS PERFORMED AT:[employer] [place] [id number] REEDER MD 02/12/2024 8:08 AM EST 02/12/2024 12:11 PM EST us Giuseppe Florence MD LAB BLOOD ORDERABLES Final Resul t [facility] [address] [place] [address] [phone] documented in this encounter Visit Diagnoses Diagnosis Hypomagnesemia- Primary Disorders of magnesium metabolism Vitamin B 12 deficiency Other B-complex deficiencies documented in this encounter Care Teams Epic Application Coordinator Relationship Specialty Start Date End Date Norma Hernandez MD [address] [place] [phone] PCP - General Family Medicine 10/09/24 documented as of this encounter
[2024-10-09 11:31] LABS: MANUAL DIFF FLAG NO
[2024-10-09 11:55] LABS: Hematocrit 43.9 % (42.0-52.0); Hemoglobin 14.4 g/dl (14.0-18.0); Imm Gran Abs Auto 0.02 X10*3/uL (0.00-0.03); Imm Gran Pct Auto 0.3 % (0.0-0.4); Lymphocytes Absolute Auto 2.1 X10*3/uL (1.2-4.9); Mean Corpuscular HGB Conc 32.8 g/dl (31.0-36.0); Mean Corpuscular Hemoglobin 30.5 pg (27.0-33.0); Mean Corpuscular Volume 93.0 fL (80.0-98.0); NRBC Abs Auto 0.000 X10*3/uL (0.0-0.012); NRBC Pct Auto 0.0 /100WBC (0.0-0.2); Platelet Count 331 X10*3/uL (160-400); Red Blood Count 4.72 X10*6/uL (4.60-5.80); White Blood Count 7.7 X10*3/uL (4.8-10.8)
[2024-10-09 11:59] LABS: Hemoglobin A1C 152.1915 umol/L; Total Hemoglobin (HGBA1C) 3891.1997 umol/L
[2024-10-09 12:05] LABS: Cholesterol 154 mg/dL (<200); HDL Cholesterol 62 mg/dL (>40); Triglycerides 152 mg/dL (<150)
== END 2024-10-09 09:36 | disposition home or self-care (01) ==
LOC: HO.HHCL 09:35
PROVIDERS: Visit Provider General Practice
DX: N20.0 Calculus of kidney (principal); T78.3XXD Angioneurotic edema, subsequent encounter; E66.3 Overweight
CPT/HCPCS: 36415; 80061; 83036; 85025; 86160

== ENCOUNTER 2024-11-03 07:55 | Outpatient (AMB) | payer MEDICAID, SELFPAY ==
--- NOTE | 2024-11-03 07:56 | MHC.OFFVIS ---
Intake Visit Reasons: kidney stones Intake Note: Patient is present for KIDNEY STONES Urology Medication:NONE Antibiotic Allergy:NONE Blood Thinner:NONE Felt Dyeing Machine Tender Required: No Allergies ondansetron Allergy (Severe, Verified 11/03/24 08:40) Angioedema Medication List - Last Reconciled 11/03/24 by STEPH Arredondo-ESTEE folic acid 20 mg PO DAILY 90 days multivitamin 1 tab PO DAILY 90 days omeprazole 20 mg PO DAILY 30 days thiamine HCl (vitamin B1) 100 mg PO DAILY 90 days HPI Comments Details: Antoine is a pleasant 59-year-old male patient of Dr. Hernandez. He presents to the office today as a new patient for nephrolithiasis. In discussion with the patient today he reports a proximally 1 month ago seeking emergency room care for ongoing left-sided abdominal pain he had been experiencing at which time he was noted to have an obstructing stone in recommendations were made for urology referral for further assessment evaluation. In review of patient's chart it appears CT 10/23 notes 6 mm distal left ureteral stone with mild hydronephrosis. No other renal stones are noted. He reports having taking medications as prescribed by ER physician and shortly after discharge urinated kidney stone. He did not bring it to the office today however he plans in doing so. He brings with him a picture of what it looked like on his phone. He denies any previous history and or surgical intervention for nephrolithiasis. He denies any bothersome urinary issues or concerns. He reports pain he had been experiencing has since subsided. He denies urinary urgency, urinary frequency, incontinence, nocturia, hematuria, dysuria, foul smelling urine, changes to urinary stream, flank pain, fever, and or chills. He is happy with her current voiding parameters. We did discussed potential causes of nephrolithiasis as well as further treatment options and risks and benefits of these treatment options. All questions were answered. He otherwise offers no other issues or concerns at this time. [facility] Social History Alcohol intake: current Alcohol intake frequency: holidays/special occasions only Alcohol type: hard liquor Patient Tobacco Use Status: Former Tobacco user Review of Systems Const All systems reviewed & are unremarkable except as noted in HPI and below Physical Exam Const General: cooperative, healthy appearing, comfortable, no acute distress, well developed, alert and awake Orientation/consciousness: patient oriented x3 HEENT Head: Yes normal to inspection, Yes normocephalic and Yes atraumatic Ears: hearing grossly normal bilaterally Eyes General: appearance normal, both eyes and all related structures Neck Neck: Yes normal visual inspection and Yes trachea midline Chest Chest palpation & inspection: normal inspection of the chest Resp Effort & Inspection: normal respiratory effort and able to speak in complete sentences Cardio Rate: regular rate GI Inspection: Yes normal to inspection General: Yes no CVA tenderness Back/Spine/Pelvis Back: no CVA tenderness Skin General skin exam: no rashes or lesions noted Neuro General: patient oriented x3 Extrem General: Yes normal to inspection Psych Appearance: grossly normal and well kempt Mental Status: mental status grossly normal Speech and movement: Normal speech and movement present and Clear speech present Affect: normal affect Attitude: cooperative Thought process: Normal thought process present Thought content: Normal thought content present Insight: Fair insight present (Psych) Judgement: Fair judgement present (Psych) Results AMB Urinalysis, Automated UA Leukoctes 0 Grey/uL Last Edit by MYRANDA Yoder on 11/03/24 08:07 UA Nitrite Negative Last Edit by MYRANDA Yoder on 11/03/24 08:07 UA Urobilinogen 0.2 mg/dL Last Edit by MYRANDA Yoder on 11/03/24 08:07 UA Protein 30 mg/dL Last Edit by MYRANDA Yoder on 11/03/24 08:07 UA pH 6.0 Last Edit by MYRANDA Yoder on 11/03/24 08:07 UA Blood 0 Ty/uL Last Edit by MYRANDA Yoder on 11/03/24 08:07 UA Specific [place] 1.025 Last Edit by MYRANDA Yoder on 11/03/24 08:07 UA Ketone Negative Last Edit by MYRANDA Yoder on 11/03/24 08:07 UA Bilirubin 1 mg/dL Last Edit by MYRANDA Yoder on 11/03/24 08:07 UA Glucose 0 mg/dL Last Edit by MYRANDA Yoder on 11/03/24 08:07 Results Reviewed Results Reviewed: Laboratory Last Values Urine pH (Auto) 6.0 11/03/24 08:06 Specific [place] (Auto) 1.025 11/03/24 08:06 Urine Protein (Auto) 30 mg/dL 11/03/24 08:06 Glucose (UA)(Auto) 0 mg/dL 11/03/24 08:06 Urine Ketones (Auto) Negative 11/03/24 08:06 Urine Blood (Auto) 0 Ty/uL 11/03/24 08:06 Urine Nitrite (Auto) Negative 11/03/24 08:06 Urine Bilirubin (Auto) 1 mg/dL 11/03/24 08:06 Urine Urobilinogen (Auto) 0.2 mg/dL 11/03/24 08:06 Leukocyte Esterase (Auto) 0 Grey/uL 11/03/24 08:06 Date of Service: 10/07/24 Procedure(s): CT abdomen pelvis wo IV con Findings: The liver and gallbladder are unremarkable. No renal stones are seen. There is a 6 mm distal left ureteral stone with mild hydronephrosis. The spleen and pancreas are unremarkable. No abdominal aortic aneurysm. Small hiatal hernia. No diverticulitis is identified. Normal appendix. No bowel obstruction. There is a small umbilical hernia. The bladder is decompressed. There are multilevel degenerative changes in the spine. Sclerotic density right femoral neck is likely a bone island. Impression: 6 mm distal left ureteral stone. Other findings as above. Assessment & Plan Assessment & Plan (1) Nephrolithiasis: Code(s): N20.0 - Calculus of kidney Category: Medical Plan In office urinalysis results reviewed the patient today; as noted above. Most recent CT results reviewed with the patient today; as noted above. We discussed at length potential causes of nephrolithiasis as well as further interventions and risks and benefits of these interventions. He currently denies any bothersome urinary issues or concerns. He reports be happy with current voiding parameters. We discussed the importance of adequate hydration relation to nephrolithiasis well overall health and well-being. We discussed adding 1 oz of lemon juice to water daily. Will obtain Litholink for further assessment evaluation. Will obtain renal ultrasound for further assessment evaluation. Follow-up in 3 months with imaging and Litholink; or sooner with any issues, concerns, and or questions. Orders: Orders AMB Urinalysis Automated Today Z13.9 - Encounter for screening, unspecified URORISK Today N20.0 - Calculus of kidney US renal BI Today N20.0 - Calculus of kidney Patient Instructions: The patient had an opportunity to ask questions regarding the treatment plan. All questions were answered. Physical exam, labs, and imaging were discussed and reviewed in detail. As well as risks, benefits, and discussion of treatment choices. No major barriers to understanding were identified. The patient expressed understanding and agreement with the above treatment plan. The patient was made aware they should contact our office by phone for worsening of their current condition, the appearance of new symptoms, or with any questions or concerns. Compliance is encouraged with any medications and follow up testing that is ordered. It is a privilege to be allowed the opportunity to participate in? your urological care.? Again, if you have any questions or concerns If you have any questions or concerns please do not hesitate to contact me. The office is [phone]. This note is constructed using voice recognition software. While every effort has been made to ensure accuracy home service demonstrator errors may have been included. Yours sincerely, AXEL Arredondo Coding Level of Care Code New Pt Level 3 (07921) Diagnoses Nephrolithiasis N20.0
--- OUTSIDE RECORDS SUMMARY | 2024-11-03 07:58 | XMS_ITS | Encounter Summary ---
Author Organization [employer] Address [address] [place] [address] Care Team Providers Care Collision Repairer Name Role Phone Norma Hernandez MD Primary Care Provider [phone] Encounter Details Date Type Department Care Team (Late st Contact Info) Description 02/12/2024 Orders Only [facility] [address] [place] [phone] Giuseppe Florence MD [address] [place] [phone] Hypomagnesemia (Primary Dx); Vitamin B 12 deficiency [...] Description 11/03/2024 11:15 AM EDT Office Visit [facility] [address] [place] [address] Norma Hernandez MD [address] [place] [address] 11/25/2024 9:30 AM EDT Office Visit [facility] OPTOMETRY [address] [place] [phone] Lei, Maribel, OD [address] [place] [address] documented as of this encounter Procedures Procedure Name Priority Date/Time Associated Diagnosis Comments HEPATITIS C VIRAL RNA, QUANTITATIVE, REAL-TIME PCR Routine 02/12/2024 8:08 AM EST documented in this encounter Results * Hepatitis C Viral RNA, Quantitative, Real-Time PCR (02/12/2024 8:08 AM EST) Hepatitis C Viral Load <15 NOT DETECTED NOT DETECTED IU/mL [facility] HCV Log PCR <1.18 NOT DETECTED NOT DETECTED Log IU/mL [facility] Comment:For additional infor mation, please refer tohttp://education.[employer]/faq/GLD90k4(This link is being provided for informational/educational purposes only.)THIS TEST WAS PERFORMED AT:[employer] [place] [id number] REEDER MD 02/12/2024 8:08 AM EST 02/12/2024 12:11 PM EST us Giuseppe Florence MD LAB BLOOD ORDERABLES Final Resul t [facility] [address] [place] [address] [phone] documented in this encounter Visit Diagnoses Diagnosis Hypomagnesemia- Primary Disorders of magnesium metabolism Vitamin B 12 deficiency Other B-complex deficiencies documented in this encounter Care Teams Collision Repairer Relationship Specialty Start Date End Date Norma Hernandez MD [address] [place] [id number] PCP - General Family Medicine 10/09/24 documented as of this encounter
== END 2024-11-03 08:35 | disposition home or self-care (01) ==
LOC: HO.HUSH 07:55
PROVIDERS: PCP General Practice; Visit Provider Nurse Practitioner Family
DX: Z13.9 Encounter for screening, unspecified (principal); N20.0 Calculus of kidney
CPT/HCPCS: 99203

== ENCOUNTER → 2024-11-03 07:55 | Outpatient (BNVA) | payer MEDICAID, SELFPAY | PROVIDERS: PCP General Practice; Visit Provider Nurse Practitioner Family | DX: N20.0 Calculus of kidney (principal) | CPT/HCPCS: 81003; 99212 ==